=== PATIENT | female | born 1960 | race Native Hawaiian/Other Pacific Islander ===

== ENCOUNTER 2016-06-21 14:55 | Outpatient (CLI) | payer BC ==
[~2016-06-21 14:55] MED LIST: CIPRO500 MG PO; EFFER-K20 MEQ OR; HYDR25TA15 PO; LEVO0.0218 PO; METO25TA4 OR; TRAM50TA PO; TRIA37.541 PO; ULTRAM ER100 MG PO
== END 2016-06-21 19:24 | disposition home or self-care (01) ==
LOC: RAD 14:55
DX: S49.81XA Other specified injuries of right shoulder and upper arm, initial encounter (principal); M25.511 Pain in right shoulder

== ENCOUNTER 2016-10-03 08:35 | Outpatient (CLI) | payer BC | END 2016-10-03 10:30 | disposition home or self-care (01) | LOC: MRI 08:35 | DX: M25.511 Pain in right shoulder (principal); S46.811A Strain of other muscles, fascia and tendons at shoulder and upper arm level, right arm, initial encounter ==

== ENCOUNTER 2016-11-14 11:55 | Outpatient (CLI) | payer BC | END 2016-11-14 19:16 | disposition home or self-care (01) | LOC: RAD 11:55 | DX: Z01.818 Encounter for other preprocedural examination (principal) ==

== ENCOUNTER 2016-12-19 10:21 | Outpatient (CLI) | payer BC | END 2016-12-19 11:30 | disposition home or self-care (01) | LOC: RAD 10:21 | DX: M79.641 Pain in right hand (principal) ==

== ENCOUNTER 2016-12-20 09:57 | Outpatient (CLI) | payer BC | END 2016-12-20 11:00 | disposition home or self-care (01) | LOC: RAD 09:57 | DX: Z13.820 Encounter for screening for osteoporosis (principal) ==

== ENCOUNTER 2018-02-05 13:48 | Outpatient (CLI) | payer BC | END 2018-02-05 18:53 | disposition home or self-care (01) | LOC: MAMMO 13:48 | DX: Z12.31 Encounter for screening mammogram for malignant neoplasm of breast (principal) ==

== ENCOUNTER 2018-05-15 16:11 | Outpatient (CLI) | payer BC ==
[2018-05-15 16:38] LABS: PLATELET COUNT 297 K/uL (152-353)
[2018-05-15 16:59] LABS: POTASSIUM 4.5 mmol/L (3.6-5.2)
== END 2018-05-15 21:43 | disposition home or self-care (01) ==
LOC: LABW 16:11
PROVIDERS: Internal Medicine Nephrology
DX: Q61.2 Polycystic kidney, adult type (principal); N18.3 Chronic kidney disease, stage 3 (moderate); I10 Essential (primary) hypertension; E55.9 Vitamin D deficiency, unspecified
CPT/HCPCS: 80053; 82306; 83970; 84100; 85027

== ENCOUNTER 2018-05-31 04:54 | Emergency (ER) | payer BC ==
[~2018-05-31] VITALS: Ht 157.5 cm; Wt 84.8 kg
[2018-05-31 04:56] VITALS: TEMP 98.3
[2018-05-31 05:34] LABS: PLATELET COUNT 296 K/uL (152-353)
[2018-05-31 05:34] LABS: POTASSIUM 3.7 mmol/L (3.6-5.2); SODIUM 144 mmol/L (136-145)
[2018-05-31] MEDS ORDERED: OTEZLA 10 & 201 TAB PO (05:36)
[2018-05-31] MEDS ORDERED: [UNRECOGNIZED DRUG - OTHER] PO (05:38)
[2018-05-31] MEDS ORDERED: BYSTOLIC5 MG PO (05:39)
[2018-05-31] MEDS ORDERED: K-TAB20 MEQ PO (05:39)
[2018-05-31 05:59] VITALS: BP 115/52
== END 2018-05-31 06:05 | disposition home or self-care (01) ==
LOC: ED 04:54
PROVIDERS: Allergy & Immunology
DX: K21.9 Gastro-esophageal reflux disease without esophagitis (principal); R07.89 Other chest pain
CPT/HCPCS: 36415; 80053; 84484; 85027; 93005; 99283

== ENCOUNTER 2018-08-21 15:34 | Outpatient (CLI) | payer BC ==
[~2018-08-21 15:34] MED LIST changes: +BYSTOLIC5 MG PO; +K-TAB20 MEQ PO; +OTEZLA 10 & 201 TAB PO; +[UNRECOGNIZED DRUG - OTHER] PO
== END 2018-08-21 21:09 | disposition home or self-care (01) ==
LOC: US 15:34
DX: R12 Heartburn (principal); R11.0 Nausea; R14.2 Eructation; R10.11 Right upper quadrant pain

== ENCOUNTER 2019-03-16 11:40 | Outpatient (CLI) | payer BC | END 2019-03-16 21:09 | disposition home or self-care (01) | LOC: MAMMO 11:40 | DX: Z13.820 Encounter for screening for osteoporosis (principal); Z12.31 Encounter for screening mammogram for malignant neoplasm of breast; N95.8 Other specified menopausal and perimenopausal disorders ==

== ENCOUNTER 2019-06-24 07:46 | Outpatient (CLI) | payer BC | END 2019-06-24 19:17 | disposition home or self-care (01) | LOC: NM 07:46 | DX: R10.11 Right upper quadrant pain (principal) | CPT/HCPCS: A9537 ==

== ENCOUNTER 2019-12-18 15:14 | Outpatient (CLI) | payer BC | END 2019-12-18 20:54 | disposition home or self-care (01) | LOC: LAB 15:14 | DX: N39.0 Urinary tract infection, site not specified (principal) | CPT/HCPCS: 87086; 87088 ==

== ENCOUNTER 2020-04-12 10:06 | Outpatient (CLI) | payer BC | END 2020-04-12 21:56 | disposition home or self-care (01) | LOC: MAMMO 10:06 | PROVIDERS: ATTEND Internal Medicine | DX: Z12.31 Encounter for screening mammogram for malignant neoplasm of breast (principal) ==

== ENCOUNTER 2021-08-28 11:16 | Outpatient (CLI) | payer BC | END 2021-08-28 18:59 | disposition home or self-care (01) | LOC: RAD 11:16 | PROVIDERS: ATTEND Internal Medicine | DX: Z13.820 Encounter for screening for osteoporosis (principal); N95.8 Other specified menopausal and perimenopausal disorders ==

== ENCOUNTER 2021-09-05 10:20 | Outpatient (CLI) | payer BC | END 2021-09-05 18:57 | disposition home or self-care (01) | LOC: MAMMO 10:20 | PROVIDERS: ATTEND Internal Medicine | DX: Z12.31 Encounter for screening mammogram for malignant neoplasm of breast (principal) ==

== ENCOUNTER 2023-01-03 10:24 | Outpatient (CLI) | payer BC | END 2023-01-03 19:27 | disposition home or self-care (01) | LOC: MAMMO 10:24 | PROVIDERS: ATTEND Internal Medicine | DX: Z12.31 Encounter for screening mammogram for malignant neoplasm of breast (principal) ==